=== PATIENT | male | born 1960 | race Caucasian/White ===

== ENCOUNTER 2017-03-30 10:41 | Emergency (ER) | payer SELFPAY ==
[2017-03-30] MEDS ORDERED: ORPHENADRINE CITRATE 30 MG/ML VIAL IM ONE (11:09)
[2017-03-30] MEDS ORDERED: HYDROmorphone HCL 1 MG/ML DISP.SYRIN IM ONE ×2 (11:09→12:07)
[2017-03-30] MEDS ORDERED: HYDROmorphone HCL 1 MG/ML DISP.SYRIN ONE ×2 (11:15→12:08)
[2017-03-30] MEDS ORDERED: ORPHENADRINE CITRATE 30 MG/ML VIAL ONE (11:15)
--- NOTE | 2017-03-30 11:19 | ERNOTE ---
Back Pain ER HPI Date of Service: 03/30/17 Presenting Symptoms: injury/pain to back Time Seen by Provider: 03/30/17 11:02 Source: patient Exam Limitations: no limitations Immunizations: IMMUNIZATION HX Immunizations Up to Date Yes History of Influenza Vaccine No Hx Pneumococcal Vaccination No Allergies/Adverse Reactions: Allergies No Known Allergies Allergy (Verified 03/30/17 11:00) Home Medications: HOME MEDICATIONS Cyclobenzaprine HCl [Flexeril] 10 mg PO TID PRN #30 tab 03/30/17 [Last Taken Unknown] oxyCODONE HCL/ACETAMINOPHEN [Percocet 5 MG/325 MG] 1 tab PO Q4H PRN #10 tab 04/06 [Last Taken Unknown] Narrative: Pt. comes in with c/o mid back pain for two days after he was jumping on a trampoline. Pt. denies any SOB, CP, NVD, fever, numbness, tingling, incontinence, alleviating factors despite taking two of his girlfriend pain pills yesterday and spending the day resting in bed. Pt. states that movement and walking increases pain. Review of Systems - Review of Systems Constitutional: Present: no symptoms reported. Absent: recent illness, fever, chills, weakness, fatigue, malaise EYE: Present: no symptoms reported ENT: Present: no symptoms reported Respiratory: Present: no symptoms reported. Absent: shortness of breath, cough , wheezing Cardiology: Present: no symptoms reported. Absent: chest pain, palpitations, edema Gastrointestinal/Abdominal: Present: no symptoms reported. Absent: nausea, vomiting, diarrhea Genitourinary: Present: no symptoms reported. Absent: pain, decreased urinary output, discharge Musculoskeletal: Present: back pain - midback, muscle pain - mid back Skin: Present: no symptoms reported. Absent: rash, change in hair/nails Neurological: Present: no symptoms reported. Absent: headache, dizziness/light- headedness, numbness, tingling Endocrine: Present: no symptoms reported Hematologic/Lymphatic: Present: no symptoms reported All Other Systems: All systems neg except as marked - Patient's Past Medical History Patient History - Medical: No pertinent hx Patient History - Cardiac/Respiratory: No pertinent hx Patient History - Cancer: No Hx of Cancer Patient History - Surgical Procedures: Appendectomy, Other - Family History Mother Family History - Medical: Diabetes Type 2 - Social History Living Situations: home Abuse History: No History of abuse Psych History: No pertinent hx Alcohol Use: none Drug Use: none - Immunizations Immunizations Up to Date: Yes Hx Pneumococcal Vaccination: No History of Influenza Vaccine: No Physical Exam - Physical Exam General Appearance: Present: wd/wn, alert, no apparent distress Head Exam: Present: normal inspection, no evidence of injury Eye Exam: Normal inspection: bilateral Respiratory: Present: no respiratory distress, normal breath sounds, no accessory muscle use, chest nontender, lungs clear Cardiovascular/Chest: Present: regular rate, rhythm, no murmur, normal peripheral pulses Back Exam: Present: vertebral tenderness - T 10-12, decreased range of motion - flexion, muscle spasm Extremity Exam: Present: normal inspection, non-tender, normal range of motion, no edema Neurological Exam: Present: alert, oriented, normal mood/affect, no motor/ sensory deficits, fret saw operator II-XII nml as tested, normal cerebellar test Skin Exam: Present: normal color, warm/dry. Absent: pallor, skin rash ED Progress - Vital Signs Patient's Vital Signs:: I have reviewed the patient's vital signs. Vital Signs: Vital Signs 03/30/17 10:57 Temperature 36.7 C Pulse Rate 77 Respiratory 12 Rate Blood Pressure 144/96 O2 Sat by Pulse 95 Oximetry - X-Ray X-Ray #1 X-Ray: thoracic Interpretation: Reviewed by me X-ray Comments: degenerative changes and DISH. - Progress/Reassessment Chief Complaint: Back Pain Departure Clinical Impression: DISH (diffuse idiopathic skeletal hyperostosis) Degenerative disk disease Qualifiers: Spinal region: thoracic Qualified Code(s): M51.34 - Other intervertebral disc degeneration, thoracic region - Departure Disposition: Home self-care Condition: Good Instructions: Degenerative Disk Disease Additional Instructions: Please follow up with primary provider in 2-3 days for further referral for patient account specialist. Referrals: Juan Lopez MD [Primary Care Provider] - Prescriptions: Cyclobenzaprine HCl [Flexeril] 10 mg PO TID PRN #30 tab PRN Reason: MUSCLE SPASMS oxyCODONE HCL/ACETAMINOPHEN [Percocet 5 MG/325 MG] 1 tab PO Q4H PRN #10 tab PRN Reason: Pain
[2017-03-30 11:50] VITALS: BP 146/92
== END 2017-03-30 12:31 | disposition home or self-care (01) ==
LOC: ER 10:41
DX: M48.10 Ankylosing hyperostosis [Forestier], site unspecified (principal); M51.34 Other intervertebral disc degeneration, thoracic region